=== PATIENT | male | born 1935 | race Caucasian/White ===

== ENCOUNTER 2017-01-03 07:48 | Emergency (ER) | payer MEDICARE, BC ==
[~2017-01-03] VITALS: Ht 185.4 cm; Wt 86.4 kg
[~2017-01-03 07:48] MED LIST: LISI-515 PO; LOVA10TA PO
[2017-01-03 07:50] VITALS: BP 151/73; PULSE 68; RESP 16; TEMP 98.4; O2SAT 97
[2017-01-03] MEDS ORDERED: ASPI81CH CHEW (08:04)
[2017-01-03 08:13] VITALS: O2SAT 97
[2017-01-03] MEDS ORDERED: SODIUM CHLORIDE 0.9% FLUSH 10 ML FLUSH IV FLUSH PRN (08:15)
[2017-01-03] MEDS ORDERED: ACETAMINOPHEN 325 MG TAB PO ONE (08:15)
--- NOTE | 2017-01-03 08:15 | PD ---
HPI Chief Complaint: Complaint Time Seen by Provider: 08:02 Travel History International Travel<30 days: No Contact w/Intl Traveler<30days: No Traveled to known affect area: No History of Present Illness HPI Patient 81-year-old male presents emergency department for evaluation of suprapubic discomfort as well as dribbling urine overnight. Patient states that approximately 5 days ago he was sick with what appears to be gastroenteritis he had a mild temperature of 100F at home with nausea and vomiting. He states that these symptoms lasted for approximately a day and then resolved. He did not have any abdominal pain. He has not had any nausea vomiting or diarrhea for the past 4 days. Patient states he does have a history of prostate enlargement but not prostate cancer. He states he had the symptoms one time in the past was diagnosed with a urinary tract infection. Denies any canal discharge denies any injury. PFSH Past Medical History Anxiety: No Depression: No Cancer: No Cardiovascular Problems: No High Cholesterol: Yes Diabetes: No Diminished Hearing: No Gastrointestinal Disorders: Yes (rectal bleeding) Genitourinary: Yes (enlarged prostate) Hypertension: Yes Psychiatric: No Respiratory: No Thyroid Disease: No Influenza Vaccination: Yes Past Surgical History Abdominal Surgery: Yes (DOUBLE HERNIA) Other Surgery: Yes Social History Alcohol Use: No Tobacco Use: No Substance Use: No Allergies-Medications (Allergen,Severity, Reaction): Coded Allergies: No Known Allergies (Unverified , 01/03/17) Reported Meds & Prescriptions Reported Meds & Active Scripts Active Ciprofloxacin (Ciprofloxacin HCl) 500 Mg Tab 500 Mg PO BID 7 Days Reported Aspirin 81 Mg Chew 162 Mg CHEW DAILY Lisinopril 20 Mg Tab 20 Mg PO DAILY Lovastatin 10 Mg Tab 20 Mg PO DAILY Review of Systems Except as stated in HPI: all other systems reviewed are Neg Physical Exam Narrative GENERAL: Well-developed well-nourished appears much younger than stated age. SKIN: Focused skin assessment warm/dry. HEAD: Atraumatic. Normocephalic. EYES: Pupils equal and round. No scleral icterus. No injection or drainage. ENT: No nasal bleeding or discharge. Mucous membranes pink and moist. NECK: Trachea midline. No JVD. CARDIOVASCULAR: Regular rate and rhythm. No murmur appreciated. RESPIRATORY: No accessory muscle use. Clear to auscultation. Breath sounds equal bilaterally. GASTROINTESTINAL: Abdomen soft, non-tender, nondistended. Hepatic and splenic margins not palpable. MUSCULOSKELETAL: No obvious deformities. No clubbing. No cyanosis. No edema. NEUROLOGICAL: Awake and alert. No obvious cranial nerve deficits. Motor grossly within normal limits. Normal speech. PSYCHIATRIC: Appropriate mood and affect; insight and judgment normal. Data Data Last Documented VS Vital Signs Date Time Temp Pulse Resp B/P Pulse Ox O2 Delivery O2 Flow Rate FiO2 01/03/17 08:13 97 Room Air 01/03/17 07:50 98.4 68 16 151/73 Orders Ed Poc Ultrasound (01/03/17 08:02) Basic Metabolic Panel (Bmp) (01/03/17 08:11) Complete Blood Count With Diff (01/03/17 08:11) Urinalysis - C+S If Indicated (01/03/17 08:11) Iv Access Insert/Monitor (01/03/17 08:11) Ecg Monitoring (01/03/17 08:11) Oximetry (01/03/17 08:11) Sodium Chloride 0.9% Flush (Ns Flush) (01/03/17 08:15) Acetaminophen (Tylenol) (01/03/17 08:15) Urine Culture (01/03/17 08:30) Labs Laboratory Tests Test 01/03/17 01/03/17 08:20 08:30 White Blood Count 11.4 TH/MM3 Red Blood Count 4.21 MIL/MM3 Hemoglobin 12.4 GM/DL Hematocrit 37.9 % Mean Corpuscular Volume 89.9 FL Mean Corpuscular Hemoglobin 29.5 PG Mean Corpuscular Hemoglobin 32.9 % Concent Red Cell Distribution Width 14.1 % Platelet Count 219 TH/MM3 Mean Platelet Volume 8.7 FL Neutrophils (%) (Auto) 81.7 % Lymphocytes (%) (Auto) 6.4 % Monocytes (%) (Auto) 9.9 % Eosinophils (%) (Auto) 1.5 % Basophils (%) (Auto) 0.5 % Neutrophils # (Auto) 9.3 TH/MM3 Lymphocytes # (Auto) 0.7 TH/MM3 Monocytes # (Auto) 1.1 TH/MM3 Eosinophils # (Auto) 0.2 TH/MM3 Basophils # (Auto) 0.1 TH/MM3 CBC Comment DIFF FINAL Differential Comment Sodium Level 138 MEQ/L Potassium Level 4.4 MEQ/L Chloride Level 105 MEQ/L Carbon Dioxide Level 25.6 MEQ/L Anion Gap 7 MEQ/L Blood Urea Nitrogen 19 MG/DL Creatinine 1.11 MG/DL Estimat Glomerular Filtration 64 ML/MIN Rate Random Glucose 98 MG/DL Calcium Level 8.7 MG/DL Urine Color LIGHT-YELLOW Urine Turbidity CLEAR Urine pH 5.5 Urine Specific Hulbert 1.007 Urine Protein NEG mg/dL Urine Glucose (UA) NEG mg/dL Urine Ketones NEG mg/dL Urine Occult Blood NEG Urine Nitrite NEG Urine Bilirubin NEG Urine Urobilinogen LESS THAN 2.0 MG/DL Urine Leukocyte Esterase MOD Urine RBC LESS THAN 1 /hpf Urine WBC 9 /hpf Urine Bacteria OCC /hpf Microscopic Urinalysis Comment CULTURE INDICATED MDM Medical Decision Making Medical Screen Exam Complete: Yes Emergency Medical Condition: Yes Differential Diagnosis UTI, urinary retention, acute kidney injury, acute abdomen unlikely. Narrative Course Patient roomed in the emergency department, appears well and much younger than stated age. His laboratory workup shows minimal evidence for urinary tract infection but given his symptomology cystitis needs to be considered. Aseptic cystitis should also be considered. Patient was urged to follow up with his urologist and states she has not seen one in some time. His basic labs were sent and are reassuring. There is no indication for advanced imaging at this time. He is feeling better and would like to go home. We'll place on empiric antibiotics and discussed return to ED criteria. Procedures Procedure Narrative Bedside ultrasound: Ultrasound of the bladder shows approximately 100 cc of urine with thickened bladder wall. No pelvic free fluid. Diagnosis Primary Impression: Cystitis Referrals: Jeffry Mccallum DO Med/Other Pt SpecificInfo: Prescription(s) given Scripts Ciprofloxacin 500 Mg [id number] Mg PO BID 7 Days Ref 0 Prov:Vicente Da Silva MD 01/03/17 Disposition: 01 DISCHARGE HOME Condition: Stable Vicente Da Silva MD January 03, 2017 08:15
[2017-01-03 08:38] LABS: AUTOMATED NEUTROPHIL # 9.3 TH/MM3 (1.8-7.7); BASOPHIL # 0.1 TH/MM3 (0-0.2); BASOPHIL % 0.5 % (0.0-2.0); EOSINOPHIL # 0.2 TH/MM3 (0-0.4); EOSINOPHIL % 1.5 % (0.0-4.0); HEMATOCRIT 37.9 % (39.0-51.0); HEMO FLAGS DIFF FINAL; LYMPH % 6.4 % (9.0-44.0); LYMPHOCYTE # 0.7 TH/MM3 (1.0-4.8); MEAN CELL VOLUME 89.9 FL (80.0-100.0); MEAN CORPUSCULAR HEMOGLOBIN 29.5 PG (27.0-34.0); MEAN CORPUSCULAR HGB CONC 32.9 % (32.0-36.0); MONO % 9.9 % (0.0-8.0); NEUT % 81.7 % (16.0-70.0); PLATELET COUNT 219 TH/MM3 (150-450); RED BLOOD COUNT 4.21 MIL/MM3 (4.50-5.90); RED CELL DISTRIBUTION WIDTH 14.1 % (11.6-17.2); WHITE BLOOD COUNT 11.4 TH/MM3 (4.0-11.0)
[2017-01-03 08:52] LABS: BICARBONATE 25.6 MEQ/L (21.0-32.0); POTASSIUM 4.4 MEQ/L (3.5-5.1)
[2017-01-03 08:59] LABS: BACTERIA, URINE OCC /hpf; BLOOD, URINE NEG (NEG); COMMENT (UR) CULTURE INDICATED; CULTURE IF INDICATED CULTURE INDICATED; GLUCOSE,URINE NEG (NEG); KETONE, URINE NEG (NEG); NITRITE,URINE NEG (NEG); PH, URINE 5.5 (5.0-8.5); URINE COLOR LIGHT-YELLOW (YELLW/STRAW)
[2017-01-03] MEDS ORDERED: CIPR500T2 PO (09:37)
== END 2017-01-03 10:37 | disposition home or self-care (01) ==
LOC: NEPC 07:48
DX: N30.90 Cystitis, unspecified without hematuria (principal); B96.5 Pseudomonas (aeruginosa) (mallei) (pseudomallei) as the cause of diseases classified elsewhere; I10 Essential (primary) hypertension
CPT/HCPCS: 80048; 81001; 85025; 87077; 87086; 87186; 99284